=== PATIENT | female | born 1960 | race African-American/Black ===

== ENCOUNTER 2022-08-13 10:47 | Emergency (ER) | payer MEDICAID ==
[~2022-08-13] VITALS: Ht 157.5 cm; Wt 79.8 kg
--- NOTE | 2022-08-13 10:55 | NUR ---
Patient bibra39 from home, altered aphasia blood sugar 539 in the field. IV on the RFA g18 patent. Kept comfortable, connected to the monitor and pulse ox. Will continue to monitor accordingly.
--- NOTE | 2022-08-13 11:08 | NUR ---
CALLED [facility].
--- NOTE | 2022-08-13 11:09 | NUR ---
[facility] CONTACT INFO: [phone]
--- NOTE | 2022-08-13 11:10 | NUR ---
PT TO CT VIA [facility].
[2022-08-13] MEDS ORDERED: IOHEXOL-350 100 ML VIAL IV ONE (11:11)
[2022-08-13] MEDS ORDERED: IV NS 0.9% 250 ML IV ONE (11:11)
--- NOTE | 2022-08-13 11:13 | NUR ---
CALLED [facility] [phone] WILL BE AURY MCKEON
--- NOTE | 2022-08-13 11:33 | NUR ---
CALLED [phone] GALINDO TO CALL US.
[2022-08-13] MEDS ORDERED: ONDANSETRON HCL/PF 4 MG/2 ML VIAL ONE (11:36)
[2022-08-13 11:52] LABS: BASOPHILS % (AUTO) 0.6 % (0.0-2.0); EOSINOPHILS % (AUTO) 0.1 % (0.0-6.0); HEMATOCRIT 38 % (33-45); LYMPHOCYTES # (AUTO) 1.3 K/uL (0.8-4.8); LYMPHOCYTES % (AUTO) 17.8 % (20.0-44.0); MEAN CORPUSCULAR HGB CONC 32 g/dl (31.0-36.0); MEAN CORPUSCULAR VOLUME 77 fL (82-100); MONOCYTES # (AUTO) 0.5 K/uL (0.1-1.30); MONOCYTES % (AUTO) 7.1 % (2.0-12.0); NEUTROPHILS # (AUTO) 5.6 K/uL (1.8-8.9); NEUTROPHILS % (AUTO) 74.4 % (43.0-81.0); PLATELET COUNT (AUTO) 145 K/uL (150-450); RED BLOOD CELL COUNT(AUTO) 4.92 MIL/uL (4.0-5.2); WHITE BLOOD COUNT (AUTO) 7.5 K/uL (4.3-11.0)
[2022-08-13] MEDS: ONDANSETRON HCL/PF 4 MG/2 ML VIAL IVP ONE (12:00)
[2022-08-13] MEDS: IV NS 0.9% 1,000 ML BAG IV ONE (12:00)
[2022-08-13] MEDS ORDERED: ATOR40TA PO (12:04)
[2022-08-13] MEDS ORDERED: NAPR-1009 PO (12:04)
[2022-08-13] MEDS ORDERED: ALBU8.5H8 IH (12:04)
[2022-08-13] MEDS ORDERED: OMEP-99 PO (12:04)
[2022-08-13] MEDS ORDERED: METF-442 PO (12:04)
[2022-08-13] MEDS ORDERED: LOSA50TA39 PO (12:04)
[2022-08-13] MEDS ORDERED: GLIP10TA11 PO (12:04)
[2022-08-13] MEDS ORDERED: GABA-532 PO (12:04)
[2022-08-13] MEDS ORDERED: METO50TA16 PO (12:04)
[2022-08-13] MEDS ORDERED: NPH,100I SQ ×2 (12:04)
[2022-08-13] MEDS ORDERED: ASPI-1169 PO (12:05)
[2022-08-13 12:14] LABS: ALBUMIN 3.1 g/dL (3.4-5.0); BILIRUBIN,DIRECT 0.1 mg/dL (0.0-0.2); BILIRUBIN,TOTAL 0.3 mg/dL (0.2-1.0); CREATININE 0.9 mg/dL (0.6-1.3); POTASSIUM 4.4 mmol/L (3.5-5.1)
--- NOTE | 2022-08-13 12:21 | NUR ---
urine collected and sent to lab.
[2022-08-13 12:28] LABS: MAGNESIUM 1.5 mg/dL (1.8-2.4)
[2022-08-13 12:45] LABS: BILIRUBIN,URINE NEGATIVE (NEGATIVE); COLOR,URINE YELLOW (YELLOW); LEUKOCYTE ESTERASE ,URINE NEGATIVE (NEGATIVE); NITRITE, URINE NEGATIVE (NEGATIVE); PH,URINE 6.5 (5.0-8.0); PROTEIN,URINE 2+ mg/dl (NEGATIVE); UGLUCOSE 3+ mg/dL (NEGATIVE); UROBILINOGEN,URINE 0.2 EU/dL (0.2)
--- NOTE | 2022-08-13 12:51 | NUR ---
CALLED [facility] [phone] JASSO WILL CALL US BACK.
[2022-08-13 12:58] LABS: BACTERIA,URINE Rare /HPF (None Seen); RBC,URINE 0-2 /HPF (0-2); SQUAMOUS EPITHELIAL CELL,UR Few /HPF (None Seen); WBC,URINE 0-2 /HPF (0-3)
--- NOTE | 2022-08-13 13:30 | NUR ---
CALLED [facility] FOR TO CALL US BACK.
--- NOTE | 2022-08-13 13:35 | NUR ---
[facility] DO[facility] SPEAKING WITH DR. GUZMAN. PATIENT GOING TO [facility].
[2022-08-13] MEDS ORDERED: LORAZEPAM INJ 2 MG/ML VIAL ONE (13:45)
[2022-08-13] MEDS ORDERED: ASPIRIN 325 MG TABLET ONE (13:46)
[2022-08-13] MEDS: ASPIRIN 325 MG TABLET PO ONE (13:51)
--- NOTE | 2022-08-13 13:51 | NUR ---
FAILED PO CHALLENGE, ASPIRIN 325MG PO NOT GIVEN
[2022-08-13] MEDS: LORAZEPAM INJ 2 MG/ML VIAL IV ONE (14:02)
--- NOTE | 2022-08-13 14:42 | NUR ---
CALLED [facility] [phone] INFORMED ABOUT COVID (+) STATUS TO GEOVANNY.
--- NOTE | 2022-08-13 19:05 | NUR ---
Patient Tranfers to outside Facility [facility] Physician:Yaneth Hahn Location: room 5125 tele [phone]
--- NOTE | 2022-08-13 20:23 | NUR ---
REPORT GIVEN TO MEGHA PORTILLO OF [id number]
--- NOTE | 2022-08-13 20:38 | NUR ---
TRANSFERRE TO [facility] UNDER ACLS
[2022-08-13 21:19] VITALS: BP 135/88
== END 2022-08-13 21:20 | disposition short-term general hospital (02) ==
LOC: ER 10:47
DX: I63.9 Cerebral infarction, unspecified (principal); R47.01 Aphasia; R29.706 NIHSS score 6; E11.65 Type 2 diabetes mellitus with hyperglycemia; U07.1 COVID-19; Z79.84 Long term (current) use of oral hypoglycemic drugs; I10 Essential (primary) hypertension; I69.322 Dysarthria following cerebral infarction; Z79.4 Long term (current) use of insulin; Z79.82 Long term (current) use of aspirin
CPT/HCPCS: 99291; 70498; 96374; 71045; 96361; 96375; 87426; 99292; 93005; 70496; 85025; 80048; 82010; 83690; 80076; 83735; 81001; 36415; 84484; 85730; 82962; 70450; J2060; J2405; J7030; J7050; Q9967; C9803

== ENCOUNTER 2022-12-30 03:35 | Emergency (ER) | payer MEDICAID ==
[~2022-12-30] VITALS: Ht 157.5 cm; Wt 82.6 kg
[~2022-12-30 03:35] MED LIST: ALBU8.5H8 IH; ASPI-1169 PO; ATOR40TA PO; GABA-532 PO; GLIP10TA11 PO; LOSA50TA39 PO; METF-442 PO; METO50TA16 PO; NAPR-1009 PO; NPH,100I SQ; OMEP-99 PO
--- NOTE | 2022-12-30 03:51 | NUR ---
BIBRA39 FROM HOME C/O HYPOGLYCEMIA AND UNCONSCIOUS. UPON EMS ARRIVAL BS=34, GLUCAGON 10 IM ADMINISTERED, BS RECHECKED = 170. PATIENT AAOX4, ABLE TO MAKE NEEDS KNOWN. PLACED COMFORTABLY IN BED, VITALS CHECKED.
--- NOTE | 2022-12-30 04:05 | NUR ---
BS=96
--- NOTE | 2022-12-30 04:10 | NUR ---
COVID SWAB COLLECTED AND SENT TO LAB
--- NOTE | 2022-12-30 04:19 | NUR ---
IV ESTABLISHED RAC #20G S/L
--- NOTE | 2022-12-30 04:25 | NUR ---
EKG DONE AT BEDSIDE
--- NOTE | 2022-12-30 04:33 | NUR ---
COVID ANTIGEN SWAB COLLECTED AND SENT TO LAB
--- NOTE | 2022-12-30 04:33 | NUR ---
called lab for blood draw. will be coming shortly.
--- NOTE | 2022-12-30 05:00 | NUR ---
DR. LEE AT BEDSIDE FOR FEMORAL BLOOD DRAW. BLOOD WORK SENT TO LAB.
--- NOTE | 2022-12-30 05:10 | NUR ---
URINE COLLECTED, SENT TO LAB.
[2022-12-30 05:11] LABS: BASOPHILS # (AUTO) 0.2 K/uL (0.0-0.2); BASOPHILS % (AUTO) 0.9 % (0.0-2.0); EOSINOPHILS % (AUTO) 0.7 % (0.0-6.0); HEMATOCRIT 27 % (33-45); HEMOGLOBIN 8.5 g/dL (11.5-14.8); LYMPHOCYTES # (AUTO) 1.4 K/uL (0.8-4.8); LYMPHOCYTES % (AUTO) 5.7 % (20.0-44.0); MEAN CORPUSCULAR HGB CONC 31 g/dl (31.0-36.0); MEAN CORPUSCULAR VOLUME 76 fL (82-100); MONOCYTES # (AUTO) 1.8 K/uL (0.1-1.30); MONOCYTES % (AUTO) 7.1 % (2.0-12.0); NEUTROPHILS # (AUTO) 21.3 K/uL (1.8-8.9); NEUTROPHILS % (AUTO) 85.6 % (43.0-81.0); PLATELET COUNT (AUTO) 285 K/uL (150-450); RED BLOOD CELL COUNT(AUTO) 3.58 MIL/uL (4.0-5.2); WHITE BLOOD COUNT (AUTO) 24.9 K/uL (4.3-11.0)
--- NOTE | 2022-12-30 05:18 | NUR ---
[facility] CALLED, AWAITING CALLBACK FROM KEELY BOSE.
[2022-12-30 05:26] LABS: ALANINE AMINOTRANSFERASE 57 U/L (12-78); ALBUMIN 2.3 g/dL (3.4-5.0); ALKALINE PHOSPHATASE 117 U/L (46-116); ASPARTATE AMINOTRANSFERASE 68 U/L (15-37); BILIRUBIN,DIRECT 0.1 mg/dL (0.0-0.2); BILIRUBIN,TOTAL 0.2 mg/dL (0.2-1.0); CALCIUM, SERUM 8.9 mg/dL (8.5-10.1); CARBON DIOXIDE 21 mmol/L (21-32); CHLORIDE 106 mmol/L (98-107); CREATININE 1.1 mg/dL (0.6-1.3); GLUCOSE 107 mg/dL (74-106); POTASSIUM 4.1 mmol/L (3.5-5.1); SODIUM SERUM 138 mmol/L (136-145); TOTAL PROTEIN, SERUM 5.8 g/dL (6.4-8.2); UREA NITROGEN, BLOOD 12 mg/dL (7-18)
--- NOTE | 2022-12-30 05:30 | NUR ---
DR. LEE ON THE PHONE WITH [facility]
--- NOTE | 2022-12-30 05:30 | NUR ---
S/W LAB TO OBTAIN BLOOD CX WHEN MIDLINE IS IN PLACE
--- NOTE | 2022-12-30 05:35 | NUR ---
Per Dr. Beltran, he spoke with Dr. Canales of [facility]
[2022-12-30 05:56] LABS: BILIRUBIN,URINE NEGATIVE (NEGATIVE); COLOR,URINE YELLOW (YELLOW); LEUKOCYTE ESTERASE ,URINE 3+ (NEGATIVE); NITRITE, URINE NEGATIVE (NEGATIVE); PROTEIN,URINE 1+ mg/dl (NEGATIVE); UGLUCOSE NEGATIVE (NEGATIVE); UROBILINOGEN,URINE 0.2 EU/dL (0.2)
--- NOTE | 2022-12-30 06:03 | NUR ---
LACTIC ACID; 2.0 DR ROSA BOSE AWARE
--- NOTE | 2022-12-30 06:08 | NUR ---
BS=61
--- NOTE | 2022-12-30 06:14 | NUR ---
DR ROSA BOSE ON PHONE CALL WITH DR RASHID RIGGS MD
--- NOTE | 2022-12-30 06:15 | NUR ---
GIVEN FOOD & JUICE FOR BS=61
[2022-12-30] MEDS ORDERED: OCTREOTIDE 100 MCG/ML VIAL ONE (06:30)
[2022-12-30] MEDS ORDERED: OCTREOTIDE 50 MCG/ML AMPUL SQ ONE (06:30)
--- NOTE | 2022-12-30 06:34 | NUR ---
UPDATED DR RASHID RIGGS MD ON PT'S GLUCOSE BS 61; DR MIKE WILL CALL BACK FOR GLUCOSE RECHECK
[2022-12-30] MEDS ORDERED: DEXTROSE 50%-WATER 50 ML DISP.SYRIN ONE (06:35)
--- NOTE | 2022-12-30 06:50 | NUR ---
GIVEN D50 IV FOR BS=61
[2022-12-30] MEDS ORDERED: DEXTROSE 50%-WATER 50 ML DISP.SYRIN IVP ONE (07:00)
--- NOTE | 2022-12-30 07:03 | NUR ---
FH=790 Addendum: 12/30/22 at 0705 by FLETCHER [id number], NOTIFIED.
--- NOTE | 2022-12-30 07:15 | NUR ---
REPORT GIVEN TO NOEMI MONIQUE RN FOR ZACHERY
[2022-12-30 07:54] LABS: WBC,URINE 21-50 /HPF (0-3)
[2022-12-30 07:55] LABS: BACTERIA,URINE Many /HPF (None Seen); MUCUS,URINE Many /LPF (None Seen); RBC,URINE 21-50 /HPF (0-2); SQUAMOUS EPITHELIAL CELL,UR Few /HPF (None Seen); YEAST,URINE Moderate /HPF (None Seen)
[2022-12-30] MEDS ORDERED: CEFTRIAXONE 1 G in IV D5W 50 ML IV ONE (08:00)
--- NOTE | 2022-12-30 10:24 | NUR ---
PT ACCEPTED TO [facility] UNDER DR. ELLIS ROOM 5116-A PLEASE CALL FOR REPORT [phone] TRANSPORT WITH PRN AT 1130 ALS.
--- NOTE | 2022-12-30 10:36 | NUR ---
BG 156
--- NOTE | 2022-12-30 11:08 | NUR ---
URINE SAMPLE OBTAINED
--- NOTE | 2022-12-30 11:22 | NUR ---
REPORT GIVEN TO MEGHA JOEL AT [facility]
--- NOTE | 2022-12-30 12:18 | NUR ---
TRANSPORT AT BEDSIDE
[2022-12-30 12:31] VITALS: BP 146/66
--- NOTE | 2022-12-30 12:31 | NUR ---
Patient transferred from hospital via gurney, accompanied by EMT and Supervisor [facility]. Stable at time of discharge. All paperwork provided to transport.
== END 2022-12-30 12:32 | disposition short-term general hospital (02) ==
LOC: ER 03:36
DX: E11.649 Type 2 diabetes mellitus with hypoglycemia without coma (principal); D72.829 Elevated white blood cell count, unspecified; I10 Essential (primary) hypertension; E78.00 Pure hypercholesterolemia, unspecified; Z20.822 Contact with and (suspected) exposure to COVID-19; Z79.899 Other long term (current) drug therapy; Z79.82 Long term (current) use of aspirin; Z79.84 Long term (current) use of oral hypoglycemic drugs
CPT/HCPCS: 99291; 96365; 71045; 96366; 96375; 87426; 93005; 85025; 80048; 87040 ×2; 87086; 83605; 80076; 81001; 36415; 84484; 96372; 82962 ×4; J0696; J2354 ×2; J7060; J7040; C9803; A4223